=== PATIENT | female | born 1955 | race Caucasian/White ===

== ENCOUNTER 2020-11-12 11:21 | Outpatient (CLI) | payer MEDICARE, OTHER, SELFPAY ==
--- NOTE | 2020-11-12 11:30 | ECG_ITS ---
Measurements Intervals [place] Rate: 45 P: 50 SD: 163 QRS: 17 QRSD: 90 T: 15 QT: 406 QTc: 354 Interpretive Statements SINUS BRADYCARDIA POSSIBLE LEFT ATRIAL ENLARGEMENT BORDERLINE ST-T WAVE ABNORMALITY- ANTEROLAT/INF LEADS BASELINE ARTIFACT- I, II, AVR, AVL,A VF BORDERLINE ECG Electronically Signed On 11-12-2020 11:53:31 CDT by Jefry Garcia D.O.
== END 2020-11-12 11:22 | disposition home or self-care (01) ==
PROVIDERS: PCP Internal Medicine; Visit Provider Urology
DX: Z01.818 Encounter for other preprocedural examination (principal); N39.3 Stress incontinence (female) (male); I10 Essential (primary) hypertension; R00.1 Bradycardia, unspecified
CPT/HCPCS: 87086; 87088; 93005

== ENCOUNTER → 2020-11-13 04:07 | Outpatient (CLI) | payer MEDICARE, OTHER, SELFPAY ==
[2020-11-13 19:03] LABS: SARS-CoV-2 RNA PCR Negative
== END ==
PROVIDERS: PCP Internal Medicine; Visit Provider Urology
DX: Z01.812 Encounter for preprocedural laboratory examination (principal); Z20.822 Contact with and (suspected) exposure to COVID-19
CPT/HCPCS: C9803; U0003; U0005

== ENCOUNTER 2020-11-16 01:35 | Day surgery (SDC) | payer MEDICARE, OTHER, SELFPAY ==
[2020-11-05 15:29] VITALS: BMI 31.0
--- NOTE | 2020-11-10 11:19 | PM.IMHP ---
H&P: HPI History of Present Illness Date/Time: 11/10/20 11:19 a 65-year-old woman with stress urinary incontinence. She presents today for surgical management. Chief Complaint: stress incontinence Review of Systems Review of Systems: All systems reviewed & are unremarkable except as noted in HPI and below PMFSH Family History Family History (Updated 11/10/20 @ 11:20 by Xavi Bennett MD) Father Carcinoma of colon Other Breast cancer Diabetes mellitus Social History Social History (System 10/01/20 @ 16:28 by Finesse Ayers) Smoking status: Never smoker Alcohol intake: current Drinks per week: 3 Spiritual care concerns: No Meds Home Medications and Allergies Home Medications Medication Instructions Recorded Confirmed Type biotin 1,000 mcg PO DAILY 11/05/20 11/05/20 History duloxetine 60 mg PO QAM 11/05/20 11/05/20 History levothyroxine 150 mcg PO DAILY 11/05/20 11/05/20 History mwvpudpu-ooi-zfuq-FA-lutein 1 tablet PO DAILY 11/05/20 11/05/20 History [Centrum Silver Women] nebivolol [Bystolic] 5 mg PO HS 11/05/20 11/05/20 History Allergies Allergy/AdvReac Type Severity Reaction Status Date / Time moxifloxacin Allergy Intermediate Rash Unverified 11/05/20 15:35 levofloxacin Allergy Unknown Rash Verified 11/05/20 15:06 Exam Const: General: cooperative and healthy appearing HENMT: Head: normal to inspection Neck: Neck: normal visual inspection Chest: Chest palpation & inspection: normal inspection of the chest Resp: Effort & Inspection: normal respiratory effort and able to speak in complete sentences GI: Inspection: normal to inspection Skin: General skin exam: normal color Neuro: General: oriented to person and patient oriented x3 Assessment and Plan Assessment and plan (1) DUTCH (stress urinary incontinence, female): Code(s): N39.3 - Stress incontinence (female) (male) Status: Acute Assessment and Plan: urethral sling
[2020-11-16 09:00] VITALS: BP 134/71; PULSE 80; RESP 16; TEMP 36.8; O2SAT 95
[2020-11-16] MEDS: LACTATED RINGERS 1,000 ML 30 ML IV CONT (09:05)
--- NOTE | 2020-11-16 09:16 | WPDANESEPPF ---
Anes - Initial Pre Proc Eval Procedure: Operation Date: 11/16/20 10:30 Proposed Procedures p Urethral Sling - Xavi Bennett MD Date/Time: 11/16/20 09:16 Surgeon: Xavi Bennett MD Pre Op Diagnosis: stress incontinence Patient Data Age: 65 Gender: F Height: 5 ft 3 in Weight: 79.4 kg Allergies Allergy/AdvReac Type Severity Reaction Status Date / Time moxifloxacin Allergy Intermediate Rash Unverified 11/16/20 09:08 levofloxacin Allergy Unknown Rash Verified 11/16/20 09:08 Home Medications Medication Instructions Recorded Confirmed Type biotin 1,000 mcg PO DAILY 11/05/20 11/05/20 History duloxetine 60 mg PO QAM 11/05/20 11/16/20 History levothyroxine 150 mcg PO DAILY 11/05/20 11/16/20 History luqzcjkk-dto-ybbq-FA-lutein 1 tablet PO DAILY 11/05/20 11/05/20 History [Centrum Silver Women] nebivolol [Bystolic] 5 mg PO HS 11/05/20 11/16/20 History Patient hx anesthesia problems: none Family hx anesthesia problems: none PMFSH Family History Family History Father Carcinoma of colon Other Breast cancer Diabetes mellitus Social History Social History Smoking status: Never smoker Alcohol intake: current Drinks per week: 3 Living arrangements: with family Spiritual care concerns: No Anes - Eval Final PreProcedure Day of Procedure 11/16/20 09:16 Patient weight: obese Heart: regular rate and rhythm Lungs: clear to auscultation Airway: Mallampati scale class II Neurological: alert and oriented Last oral intake: >/= 8 hours ASA classification: II Emergent: no Anesthetic plan: proceed Anesthesia type and monitoring: general GIVS and standard monitoring Informed Consent: The patient's anesthetic plan and its attendant risks and benefits were discussed with the patient/family/POA. Questions were solicited and answers provided to the satisfaction of the patient/family/POA.
--- NOTE | 2020-11-16 10:20 | WPDHPUPDATE1 ---
History and Physical Update Update Date/Time: 11/16/20 10:20 History and Physical has been reviewed, including an updated exam of the patient. There are NO changes in the patient's condition. Risks, benefits, and alternatives have been discussed and questions answered. Patient agrees to proceed with procedure.
[2020-11-16] MEDS: ceFAZolin 2 GM/D5W 50 ML 2 GM/50 ML BAG IVPB (10:28)
[2020-11-16] MEDS: BUPIVACAINE/EPINEPHRINE 0.25% 50 ML VIAL 30 ML INFILTRATE (10:49)
--- NOTE | 2020-11-16 10:59 | PM.PROC ---
Procedure Note - Detailed Date of procedure: 11/16/20 Pre-op diagnosis: stress incontinence Stress urinary incontinence Post-op diagnosis: same Procedure performed: Transobturator Mid-urethral sling Cystoscopy Description of procedure: This is a patient with confirmed stress urinary incontinence. She desires correction. She understands the risks of bleeding, infection, damage to the urinary tract, lack of cure of stress incontinence, recurrence of stress incontinence, postoperative voiding dysfunction including incontinence and retention, need for ancillary procedures to loosen remove the sling, postoperative voiding dysfunction including retention and overactive bladder, hip and leg pain, dyspareunia, mesh related complications including exposure and extrusion. She agrees to proceed. She understands it will not help overactive bladder symptoms if present. She was correctly identified and informed consent obtained. She is brought to the operating room. She was given appropriate anesthesia. She was placed in the dorsal lithotomy position. All pressure points were padded. She was given appropriate perioperative antibiotics and a time-out performed. A Ramirez catheter is placed. I marked out the thigh incisions anesthetize the skin and made those incisions. I anesthetized the anterior vaginal wall over the mid urethra. I made a 1 cm incision. I dissected out laterally taking great care not to injure the urethra or the vaginal wall. Passed the helical trocars 1st on the left and then on the right from the thigh incision towards the vaginal incision. Sling was connected to the trocars and brought out through the thigh incision. I tensioned the sling appropriately. I cut and removed the plastic sheaths. I closed the incision with 2 0 Vicryl. I then performed cystoscopy. There was no surgical artifact or abnormalities inside the bladder. The urethra was normal without surgical artifact. I cut the excess sling material. I closed the incisions with glue. She was awakened and transferred to the PACU in stable condition. Implants: Mid urethral sling Surgeon: Xavi Bennett MD Drains: No Packing: No Pathology: none sent Complications: No immediate complications Condition: stable Disposition: PACU
[2020-11-16 11:04] VITALS: BP 136/57; PULSE 53; RESP 14; O2SAT 100
[2020-11-16 11:24] VITALS: BP 126/65; PULSE 53; RESP 14; O2SAT 98
[2020-11-16 11:50] VITALS: BP 140/56; PULSE 60; RESP 16
[2020-11-16 12:20] VITALS: BP 124/75; PULSE 60; RESP 16
== END 2020-11-16 12:25 | disposition home or self-care (01) ==
PROVIDERS: PCP Internal Medicine; Visit Provider Urology
PROC: (CPT 57288; principal; 2020-11-16 10:30)
DX: N39.3 Stress incontinence (female) (male) (principal); E03.9 Hypothyroidism, unspecified; E66.9 Obesity, unspecified; Z68.35 Body mass index [BMI] 35.0-35.9, adult
CPT/HCPCS: 57288; A9270; C1771; J0690; J2250; J2704; J3010; J7030; J7120

== ENCOUNTER 2021-08-08 00:10 | Day surgery (SDC) | payer MEDICARE, OTHER, SELFPAY ==
--- NOTE | 2021-07-30 15:18 | PM.IMHP ---
H&P: HPI History of Present Illness Date/Time: 07/30/21 15:18 Chief Complaint: Right toe deformity Narrative: 66-year-old woman with right foot 2nd 3rd and 4th hammertoe deformity. Pain with shoe wear and activity. Unrelieved with conservative measures. Presents for operative treatment. Review of Systems Constitutional: Constitutional: Denies fever(s) Eyes: Eyes: Denies blurry vision ENT: Reports Normal hearing present Cardiovascular: Cardiovascular: Denies chest pain and Denies dyspnea Respiratory: Respiratory: Denies dyspnea and Denies wheezing Gastrointestinal: Gastrointestinal: Denies abdominal pain Genitourinary: Genitourinary: Denies urinary urgency Musculoskeletal: Musculoskeletal: Reports as per HPI and Denies numbness Integumentary/Breasts: Skin/Breast: Denies changing lesions and Denies sores Neurologic: Reports Normal hearing present, Denies behavioral changes, Denies confusion, Denies numbness and Denies convulsions Psychiatric: Psychiatric: Denies behavioral changes, Denies confusion and Denies hallucinations Endocrine: Endocrine: Denies heat intolerance Hematologic/Lymphatic: Hematologic/Lymphatic: Denies easy bleeding Allergic/Immunologic: Allergic/Immunologic: Denies wheezing PMFSH Past Medical History Medical History (Updated 07/30/21 @ 15:19 by Mike Wesley MD) Acquired hammertoe of right foot Arthritis Foot pain, right Skin cancer Vision loss Surgical History Surgical History History of vascular surgery Saphenous vein stripping [address] Quinonez Family History Family History Father Carcinoma of colon Other Arthritis Breast cancer Diabetes mellitus Hypertension Social History Social History Smoking status: Never smoker Alcohol intake: current Drinks per week: 3 Substance use: never Substance use type: does not use Gender identity (if verbalized by the patient): Female Spiritual care concerns: No Meds Home Medications and Allergies Home Medications Medication Instructions Recorded Confirmed Type Bystolic 5 mg PO HS 11/05/20 05/31/21 History Centrum Silver Women 1 tablet PO DAILY 11/05/20 05/31/21 History biotin 1,000 mcg PO DAILY 03/29/21 10/22/21 History duloxetine 60 mg PO QAM 11/05/20 05/31/21 History levothyroxine 150 mcg PO DAILY 11/05/20 05/31/21 History tramadol 50 mg PO Q6H PRN #20 tablet 11/16/20 05/31/21 Rx Allergies Allergy/AdvReac Type Severity Reaction Status Date / Time moxifloxacin Allergy Intermediate Rash Verified 05/31/21 13:51 cefixime [From Suprax] Allergy Unknown Rash Verified 05/31/21 13:51 levofloxacin Allergy Unknown Rash Verified 05/31/21 13:51 Exam Const: General: healthy appearing; No in distress or confusion Orientation/consciousness: oriented to person, oriented to place, oriented to time and No confusion HENMT: Head: normal to inspection, normocephalic and atraumatic Eyes: Conjunctivae: conjunctivae normal Sclera: sclerae normal Neck: Neck: supple and nontender Resp: Effort & Inspection: normal respiratory effort and no audible wheezes Cardio: Rhythm: regular rhythm Skin: General skin exam: no rashes or lesions noted Neuro: General: oriented to person, oriented to place, oriented to time and No confusion Extrem: Right upper extremity: normal to inspection Left upper extremity: normal to inspection Right lower extremity: ankle Details: normal to inspection, normal ROM ( dorsiflexion 5?, plantar flexion 45?, inversion 20?, eversion 10?) and other ( good stability all directions); no tenderness, no swelling and no ecchymosis and foot Details: abnormal to inspection Details: a deformity Location: of the great toe (Bone spur dorsal) and other (Dorsal prominence 1st metatarsal), tenderness Location: of the great toe Location
[2021-08-01 09:56] VITALS: BMI 30.1
--- NOTE | 2021-08-01 10:02 | PC.NURSE ---
Report to the Outpatient Waiting Room, entrance under the green pavilion located off [facility], at time __0600 on date _08/08/21 . OR Time: __729 . - You and your visitor will be asked a series of questions to screen for COVID 19 for your protection. - A mask is required within the hospital. - Only one visitor is allowed at this time. Patient visitors will be guided where to wait when not with patient. Preoperative COVID Testing Requirements: No COVID Test needed if: (proof is required; if not received patient will have Rapid Test prior to entry) - Patient has received COVID Vaccine at least 14 days prior to procedure date or - Patient has positive COVID test result within last 90 days of surgery date. COVID Test needed if above criteria is not met If not COVID vaccinated a COVID test must be conducted within 72 hours of surgery and patient is asked to isolate self from time of testing until procedure. You will go to the [employer] [facility] for your COVID testing. The [employer] [facility] site is located at the corner of [address] [facility]. You will only be called if COVID results are positive and your surgeon may reschedule your elective surgery date. Patients may have clear liquids (water, carbonated beverages, clear teas, apple juice) until 3 hours prior to surgery with a maximum of 20 ounces. - No food from midnight until time of surgery - Infants may have breast milk until 4 hours before surgery, infant formula 6 hours prior to surgery. - Children will be allowed to drink immediately following surgery. If applicable, please bring a bottle or sippy cup to assist with drinking. Juice, water, soda, and popsicles are readily available. For infants on formula, please bring formula the day of surgery. Pacifiers are allowed. Take the following medications with a SIP of water the morning of surgery: ___DULOXETINE,LEVOTHYROXINE Medications to discontinue per physician ____ALL VITAMINS AND SUPPLEMENTS 3 DAYS PRE OP Date to take last dose08/04/21 Please no make-up, nail guyanese, hairspray, perfume, deodorant, or body powder the day of surgery. No jewelry (including any body piercings) or valuables the day of surgery, leave them at home. Please take a shower or bath the night before, or the morning of, surgery with an antibacterial soap. Wear comfortable, loose fitting clothing. Children are encouraged to wear pajamas. - Jewelry must be removed prior to entering the operating room. Rings and piercings that are not removed may be cut off. - The hospital will not accept responsibility for valuables. - Please leave all valuables, including medications, at home the day of surgery. If you are going home after surgery, a licensed commercial driver's license driver must drive you home. - NO public transportation without another adult. - We recommend that an adult stay with you for 24 hours following discharge. - We also recommend that you do not drive, make important decision, drink alcoholic beverages, or take any drugs that were not prescribed by your health care provider for at least 24 hours after your discharge time. For Pediatric surgeries, we recommend two adults accompany the child home (only one inside the building at this time). Follow any additional instructions given to you from your surgeon. Telephone instructions given to ___PATIENT and asked if any additional questions and then verbalized understanding. Patient advised to call surgeon office or pre surgery nurse liaison [phone] if any additional questions.
[2021-08-08] VITALS (8 sets, daily range): BP systolic 114–140; BP diastolic 71–89; PULSE 46–61; RESP 12–14; TEMP 36.7–36.9; O2SAT 98–100
--- NOTE | ~2021-08-08 | XR_ITS ---
EXAMINATION: XR surgery orthopedic DATE: 08/08/2021 08:15 INDICATION: Right hammertoe correction TECHNIQUE: 4 fluoroscopic images of the right forefoot were obtained during procedure performed by Dr Fredo Wesley. Radiologist was not present for the imaging or procedure. The amount of fluoroscopy time u sed during this procedure was 0.2 minutes. Total DAP was 0.973 mGycm^2 COMPARISON: None. FINDINGS: Images demonstrate postoperative change of a right second proximal interphalangeal joint arthrodesis which is fixed with a fusion device placed over an axially directed percutaneous K wire which extends from the tuft of the distal phalanx to the base of the proximal phalanx. There is also been a K wire placed across the third toe from the tuft to the base of the proximal phalanx. Alignment post fixati on is in near-anatomic. No fracture. Mild osteoarthritis at the first metatarsophalangeal joint. IMPRESSION: 1. Fluoroscopy utilized during orthopedic procedures and the second and third toes as detailed above including an internally fixed second proximal interphalangeal joint arthrodesis. See procedure note f or further detail. Reviewed, dictated and finalized at location A. OR LANDSCAPE ARCHITECT IMPRESSION: 1. Fluoroscopy utilized during orthopedic procedures and the second and third t oes as detailed above including an internally fixed second proximal interphalan geal joint arthrodesis. See procedure note for further detail.
--- NOTE | 2021-08-08 06:09 | WPDHPUPDATE1 ---
History and Physical Update Update Date/Time: 08/08/21 06:09 History and Physical has been reviewed, including an updated exam of the patient. There are NO changes in the patient's condition. Risks, benefits, and alternatives have been discussed and questions answered. Patient agrees to proceed with procedure.
--- NOTE | 2021-08-08 06:43 | P.PNAN_ITS ---
Anes - Initial Pre Proc Eval Procedure: Operation Date: 08/08/21 07:30 Proposed Procedures p Right Second, Third and Fourth Hammer Toe Correction - Mike Wesley MD Date/Time: 08/08/21 06:43 Surgeon: Mike Wesley MD Pre Op Diagnosis: right 2nd,3rd,4th hammer toe Patient Data Age: 66 Gender: F Height: 1.6 m Weight: 77.15 kg Allergies Allergy/AdvReac Type Severity Reaction Status Date / Time moxifloxacin Allergy Intermediate Rash Verified 08/08/21 06:21 cefixime [From Suprax] Allergy Unknown Rash Verified 08/08/21 06:21 levofloxacin Allergy Unknown Rash Verified 08/08/21 06:21 Home Medications Medication Instructions Recorded Confirmed Type Centrum Silver Women 1 tablet PO DAILY 11/05/20 08/01/21 History biotin 1,000 mcg PO DAILY 11/05/20 08/01/21 History duloxetine 60 mg PO QAM 11/05/20 08/01/21 History levothyroxine 150 mcg PO DAILY 11/05/20 08/08/21 History nebivolol [Bystolic] 5 mg PO HS 11/05/20 08/01/21 History aspirin [Adult Low Dose Aspirin] 81 mg PO HS 08/01/21 08/01/21 History Patient hx anesthesia problems: none Family hx anesthesia problems: none Results Review: All pre-operative results and documents have been reviewed as part of the pre-operative evaluation. [facility] Past Medical History Medical History Acquired hammertoe of right foot Arthritis Foot pain, right Skin cancer Vision loss Surgical History Surgical History (Updated 08/08/21 @ 06:43 by Jose Ortiz MD) H/O: hysterectomy History of vascular surgery Saphenous vein stripping [address] Quinonez Family History Family History Father Carcinoma of colon Other Arthritis Breast cancer Diabetes mellitus Hypertension Social History Social History Smoking status: Never smoker Alcohol intake: current Drinks per week: 3 Substance use: never Substance use type: does not use Living arrangements: with family Gender identity (if verbalized by the patient): Female Spiritual care concerns: No Anes - Eval Final PreProcedure Day of Procedure 08/08/21 06:43 Patient weight: obese Heart: regular rate and rhythm Lungs: clear to auscultation Airway: Mallampati scale class II Neurological: alert and oriented Last oral intake: >/= 8 hours ASA classification: II Emergent: no Anesthetic plan: proceed Anesthesia type and monitoring: general LMA and standard monitoring Results Review: All pre-operative results and documents have been reviewed as part of the pre-operative evaluation. Informed Consent: The patient's anesthetic plan and its attendant risks and benefits were discussed with the patient/family/POA. Questions were solicited and answers provided to the satisfaction of the patient/family/POA.
[2021-08-08] MEDS: ACETAMINOPHEN 500 MG TABLET 1000 MG PO (07:00)
[2021-08-08] MEDS: LACTATED RINGERS 1,000 ML 30 ML IV CONT ×2 (07:05→08:26)
[2021-08-08] MEDS: KETOROLAC 15 MG/ML VIAL (*BKC) IV PUSH (07:07)
[2021-08-08] MEDS: ceFAZolin 2 GM/D5W 50 ML 2 GM/50 ML BAG IVPB (07:22)
[2021-08-08] MEDS: BUPIVACAINE HCL 0.5% PF 30 ML VIAL INFILTRATE (07:43)
--- NOTE | 2021-08-08 08:32 | P.OP_ITS ---
Procedure Note - Detailed Date of Procedure 08/08/21 Pre-op Diagnosis right 2nd,3rd,4th hammer toe Post-op Diagnosis same Procedure Performed Right 2nd 3rd and 4th hammertoe correction. Second proximal interphalangeal joint arthrodesis. Third and 4th flexor tenotomies. Surgeon Mike Wesley MD Medical Device registered nurse first assistant Anesthesia general Indications 66-year-old woman with right foot 2nd 3rd and 4th hammertoe deformity causing ulceration on the dorsum of the toes. Failed conservative treatment with strapping and hammertoe pads, accommodative shoes. Presents for operative treatment having failed non operative treatment. Description of Procedure Patient identified in the preoperative holding. Informed consent given. Operative extremity marked. Patient received intravenous antibiotics. Patient brought to the operating room where underwent general anesthetic by anesthesia team. Positioned supine on operating room table. Time-out performed confirming the patient, site of the surgery and the plan. Right foot prepped draped usual sterile surgical fashion using a ChloraPrep skin solution. Foot ankle exsanguinated and the calf tourniquet inflated to 225 mmHg. Second toe addressed 1st. Fifteen blade knife used to make a longitudinal incision over the dorsum of the proximal interphalangeal joint. Collateral ligaments released after dorsal capsulotomy. The distal and of the proximal phalanx removed with a bone cutter. The articular surface of the middle phalanx removed with a rongeur. Sizing and reaming of the proximal and middle phalanx then performed. Implant positioned and reduction of the interphalangeal joint performed. K-wire position within the fixation device for added fixation, bent outside of the toe and cut. Image intensification confirmed alignment, reduction and placement of the internal fixation. Wound irrigated and the capsule closed with 3-0 Monocryl interrupted suture. Skin repaired with 4-0 nylon interrupted suture. Third toe then addressed. Fifteen blade knife used to perform a percutaneous tenotomy of the flexor tendon with the toe and extension. Good release noted. Toe was then provisionally pinned with a point is 054 in K-wire for added fixation. Image intensification confirmed placement. The pin was bent and cut outside of the distal aspect of the toe. Fourth toe then addressed. Fifteen blade knife used to perform percutaneous tenotomy the flexor tendon with a toe in extension. Good release noted. Irrigation of the 3rd and 4th toe incisions and closure with 4-0 nylon interrupted suture. Sterile dressing applied. The patient was then woken from anesthesia, extubated and taken to the recovery room in stable condition. All sponge, needle, instrument counts were correct at the end of the case. Implants Arthrex 14 mm hammertoe implant, 0.054 in K-wire x2 Estimated Blood Loss 1 Tourniquet Time 35 Drains No Packing No Pathology none sent Complications None Condition stable Disposition PACU
[2021-08-08] MEDS: oxyCODONE HCL (*CRX) 5 MG TAB IR PO (09:35)
--- NOTE | 2021-08-08 10:24 | SUR.OPER ---
DYNANITE PIP IMPLANT BENT 14MM WITH INSTRUMENTATION LOT [id number], EXP 2025-04-09 RIGHT FOOT 2ND TOE
== END 2021-08-08 10:40 | disposition home or self-care (01) ==
PROVIDERS: PCP Internal Medicine; Visit Provider Orthopaedic Surgery
PROC: (CPT 28285; principal; 2021-08-08 07:30)
DX: M20.41 Other hammer toe(s) (acquired), right foot (principal); E03.9 Hypothyroidism, unspecified; M19.90 Unspecified osteoarthritis, unspecified site; Z85.828 Personal history of other malignant neoplasm of skin; E66.9 Obesity, unspecified; Z68.35 Body mass index [BMI] 35.0-35.9, adult
CPT/HCPCS: 28285; 26860; 28010; A9270; J0690; J1100; J1885; J2250; J2405; J2704; J3010; J7120

== ENCOUNTER → 2021-12-26 12:11 | Outpatient (CLI) | payer MEDICARE, OTHER, SELFPAY ==
--- NOTE | ~2021-12-26 | MR_ITS ---
EXAMINATION: MR shoulder RT wo con DATE: 12/26/2021 13:09 INDICATION: Right shoulder pain and decreased range of motion TECHNIQUE: Magnetic resonance imaging (MRI) of the right shoulder was performed without intravenous c ontrast. Sequences included axial PD-weighted FS FSE, coronal oblique PD-weighted FS FSE, coronal obl ique T2-weighted FS FSE, sagittal PD-weighted FS FSE, and sagittal T1-weighted SE. COMPARISON: None. FINDINGS: Coracoacromial arch: The acromion undersurface is flat in morphology (type I) with mild anterolateral downsloping. The cor acoacromial ligament is normal. Mild to moderate acromioclavicular osteoarthritis with small inferior ly directed osteophytes. Rotator cuff: Moderate supraspinatus and mild infraspinatus and subscapularis tendinopathy without discrete tear. T he teres minor tendon is normal. Normal rotator cuff muscle bulk and signal. Biceps tendon, glenoid labrum and glenohumeral cartilage: Long head of the biceps tendon is normal. Advanced glenohumeral osteoarthritis with extensive full th ickness cartilage loss involving much of the humeral head and glenoid and remodeling of the articular surfaces. Prominent subarticular cystic changes are seen along the superomedial aspect of the eileen l head and along the posterior and superior rim of the glenoid. Moderate size marginal osteophytes al ramy the inferomedial aspect of the humeral head. Degenerative tearing of the majority of the glenoid labrum relatively sparing the portion of the posterior superior labrum. There are multiple peripheral labral cysts along the posterior glenoid. Fluid: Moderate-sized glenohumeral joint effusion with synovitis at the axillary and anterior recess of the joint space. 10 x 8 x 4 mm low signal intensity loose body at the deep subscapular recess. There is p roportional extension of a moderate amount fluid along the long head biceps tendon sheath. Small amou nt of fluid in the subacromial/subdeltoid bursa consistent with mild bursitis. Bones: No fracture or pathologic marrow replacing process. IMPRESSION: 1. Advanced right glenohumeral osteoarthritis with extensive degenerative tearing of the glenoid labr um and likely reactive moderate sized glenohumeral joint effusion. 2. Mild to moderate rotator cuff tendinopathy without discrete tear. 3. Mild to moderate acromioclavicular osteoarthritis. 4. Mild subacromial/subdeltoid bursitis. Reviewed, dictated and finalized at location A. IMPRESSION: 1. Advanced right glenohumeral osteoarthritis with extensive degenerative teari ng of the glenoid labrum and likely reactive moderate sized glenohumeral joint effusion. 2. Mild to moderate rotator cuff tendinopathy without discrete tear. 3. Mild to moderate acromioclavicular osteoarthritis. 4. Mild subacromial/subdeltoid bursitis.
--- NOTE | ~2021-12-26 | MR_ITS ---
EXAMINATION: MR cervical spine wo con DATE: 12/26/2021 12:51 INDICATION: Neck pain. TECHNIQUE: Magnetic resonance imaging (MRI) of the cervical spine was performed without intravenous c ontrast. Sequences included sagittal T2-weighted FSE, sagittal T2-weighted FS FSE, sagittal T1-weight ed FSE, axial MERGE, and axial T2-weighted FSE. COMPARISON: None FINDINGS: There is kyphosis of cervical spine. There is 2 mm anterolisthesis of C3 on C4 and C7 on T1 . Vertebral body heights are normal. There is mildly decreased disc height at C4-C5, severely decreas ed disc height at C5-C6, and moderately decreased disc height at C6-C7. The spinal cord signal intens ity is normal. The following disc levels are specifically discussed: C2-C3: The disc does not extend beyond the endplate margin. There is no uncovertebral joint osteoarth ritis. There is mild right and severe left facet joint osteoarthritis. There is mild left neural fora americo stenosis. There is no central canal stenosis. C3-C4: The disc does not extend beyond the endplate margin. There is moderate left uncovertebral join t osteoarthritis. There is severe bilateral facet joint osteoarthritis. There is mild right and moder ate left neural foraminal stenosis. There is no central canal stenosis. C4-C5: The disc does not extend beyond the endplate margin. There is severe right and moderate left u ncovertebral joint osteoarthritis. There is severe bilateral facet joint osteoarthritis. There is mil d bilateral neural foraminal stenosis. There is mild central canal stenosis. C5-C6: The disc is bulging. There is moderate right and severe left uncovertebral joint osteoarthriti s. There is severe right and moderate left facet joint osteoarthritis. There is mild bilateral neural foraminal stenosis. There is mild central canal stenosis with ventral indentation of the spinal cord . C6-C7: The disc is bulging. There is severe bilateral uncovertebral joint osteoarthritis. There is mi ld bilateral facet joint osteoarthritis. There is mild bilateral neural foraminal stenosis. There is mild central canal stenosis. C7-T1: The disc does not extend beyond the endplate margin. There is no uncovertebral joint osteoarth ritis. There is severe bilateral facet joint osteoarthritis. There is mild bilateral neural foraminal stenosis. There is no central canal stenosis. IMPRESSION: 1. Severe cervical spondylosis. Reviewed, dictated and finalized at location A.
== END ==
PROVIDERS: PCP Internal Medicine; Visit Provider Internal Medicine
DX: M47.813 Spondylosis without myelopathy or radiculopathy, cervicothoracic region (principal); M48.03 Spinal stenosis, cervicothoracic region; M19.011 Primary osteoarthritis, right shoulder; M75.51 Bursitis of right shoulder
CPT/HCPCS: 72141; 73221

== ENCOUNTER 2024-11-11 10:21 | Outpatient (CLI) | payer MEDICARE, OTHER, SELFPAY ==
--- NOTE | 2024-11-11 10:27 | ECG_ITS ---
Test Date: 2024-11-11 10:43:35 Measurements Intervals [place] Rate: 54 P: 0 OK: 157 QRS: 20 QRSD: 106 T: 29 QT: 418 QTc: 400 Interpretive Statements SINUS BRADYCARDIA BORDERLINE ST-T WAVE ABNORMALITY- ANT/INF LEADS BASELINE ARTIFACT- I, II, III, AVR, AVL, AVF BORDERLINE ECG No previous ECG available for comparison Electronically Signed On 11-11-2024 10:57:16 CDT by Jefry Garcia D.O.
--- OUTSIDE RECORDS SUMMARY | 2024-11-11 10:52 | XMS_ITS | Clinical Summary ---
Author Organization [facility] Address [address] [place] [address] Care Team Providers Care Senior Piping Designer Name Role Phone Sonia New PA-C Primary Care Provider [phone] Encounters Date Type Department Care Team Description 10/14/2024 12:17 PM CODING COMPLIANCE MANAGER - 10/14/2024 11:59 PM CODING COMPLIANCE MANAGER Hospital Encounter [facility] [address] [place] [address] Sonia New PA-C Discharge Disposition: Home or Self Care (Routine Discharge) 10/14/2024 Travel 09/20/2024 1:14 PM CODING COMPLIANCE MANAGER - 09/20/2024 11:59 PM CODING COMPLIANCE MANAGER Hospital Encounter [facility] [address] [place] [address] Sonia New PA-C Discharge Disposition: Home or Self Care (Routine Discharge) 09/20/2024 Travel from Last 3 Months Immunizations Name Administration Dates Next Due PFIZER COVID-19 (ORIGINAL FO RMULATION, PURPLE CAP) mRNA, LNP-S, PF, 30 MCG/0.3 ML DOSE 08/20/2020,07/30/2020 Family History Medical History Relation Comments Breast Cancer Maternal Grandmother Relation Status Comments Maternal Grandmother Social History Tobacco Use Types Packs/Day Years Used Date Smoking Tobacco: Never Assessed Comments Unknown Sex and Gender Information Value Date Recorded Sex Assigned at Not on file Legal Sex Female 5:52 PM CDT Gender Identity Not on file Sexual Orientation Not on file Plan of Treatment Health Maintenance Due Date Last Done Comments Colorectal Cancer Screening Colonoscopy (10 Years) 1955 Pneumococcal Vaccine: 65+ Years (1 of 2 - PCV) 1961 Hepatitis C 1973 DTaP, Tdap and Td Vaccines ( 1 - Tdap) 1974 Zoster Vaccines (1 of 2) 2005 RSV Immunization or 60+ Years (1 - Risk 60-74 years 1-dose series) 2015 Annual Medicare Wellness Visit 2020 COVID-19 Vaccine (3 - 2023-2 5 season) 2024 08/20/2020, 07/30/2020 Influenza Adult (#1) 2024 Mammogram Screening 01/06/2026 01/07/2024 Dexa Scan (General) Completed 01/07/2024 Meningococcal B Vaccine Aged Out No l onger eligible based on patient's age to complete this topic Meningococcal Vaccine Aged Out No héctor rodrigo eligible based on patient's age to complete this topic RSV Immunizations Under 20 Months Aged Out No longer eligible b ased on patient's age to complete this topic Procedures Procedure Name Priority Date/Time Associated Diagnosis Comments USE ECHOCARDIOGRAM W CON Routine 10/14/2024 1:30 PM CODING COMPLIANCE MANAGER Nonrheumatic mitral (valve) prolapse CT HEART SCREEN CALCIUM SCORE PROMO Routine 09/20/2024 1:33 PM CODING COMPLIANCE MANAGER Encounter for screening for cardiovascular disorders Essential (primary) hypertension BONE DENSITY/DEXA Routine 01/07/2024 12: 43 PM CDT Other primary ovarian failure MG SCREENING W TOOTIE CLAUDIA DIGI Routine 01/07/2024 12:31 PM CDT Encounter for screening mammogram for malignant neoplasm of breast from Last 3 Months or Most Recently Relevant to Health Maintenance Results * USE ECHOCARDIOGRAM W CON (10/14/2024 1:30 PM CODING COMPLIANCE MANAGER) Anatomical Region Laterality Modality NA Ultrasound 10/14/2024 12:2 2 PM CODING COMPLIANCE MANAGER Narrative 10/14/2024 4:49 PM CODING COMPLIANCE MANAGER SERA OUTREACH Pat.Name: Betina Lawton Pat.ID: [id number] .Date: 10/14/2024 Refer.MD: Gilbert, [facility] Imaging Exam Time: 12:22:00 PM Study Type:GILBERT Height: 63 in Weight: 195 lb BSA: 1.91 m2 Age: 12 1955,69Y Sex: F Sonogrphr: Cr Pat. Stat.:Outpatient Reason for Study:Nonrheumatic mitral (valve) prolapse Procedures: Study performed at [place], [place] and interpreted by [facility]. 2D, M-mode, Doppler, Color Flow, Myocardial contrast was used to enhance endocardial definition. ++++++++++++++++++++++++++++++++++++ SUMMARY: ++++++++++++++++++++++++++++++++++++ Left ventricle is normal in size and systolic function Estimated EF of 55-60% Diastolic dysfunction. Right ventricle is normal in size and systolic function Moderate aortic regurgitation Unable to estimate pulmonary pressures. ++++++++++++++++++++++++++++++++++++ FINDINGS: ++++++++++++++++++++++++++++++++++++ LV: The left ventricular size is normal. The left ventricular systolic function is normal. Estimated left ventricular ejection fraction is 55-60%. Left ventricular diastolic function is abnormal (grade 1 - impaired relaxation). WM: Wall motion appears normal in all segments. RV: The right ventricle size is normal. The right ventricular function is normal. LA: Left atrial size is normal. RA: The right atrial size is normal. REJI: No evidence of pericardial effusion. AO: Aorta is normal. SVn: Inferior vena cava is normal. AV: The aortic valve is trileaflet. No evidence of aortic valve stenosis. Moderate aortic regurgitation. MV: The mitral valve is structurally normal. There is trace mitral regurgitation. PV: The pulmonic valve is normal There is trace pulmonic regurgitation TV: The tricuspid valve appears structurally normal. There is trace tricuspid regurgitation. <Electronic Signature> 10/14/2024 04:49 PM Max Monsivais M.D. Procedure Note Max Monsivais MD - 10/14/2024 SERA HUNT Pat.Name: Betina Lawton Pat.ID: [id number] .Date: 10/14/2024 Refer.MD: Gilbert, [facility] Imaging Exam Time: 12:22:00 PM Study Type:OUTREACH Height: 63 in Weight: 195 lb BSA: 1.91 m2 Age: 12 1955,69Y Sex: F Sonogrphr: Cr Pat. Stat.:Outpatient Reason for Study:Nonrheumatic mitral (valve) prolapse Procedures: Study performed at [place], [place] and interpreted by [facility]. 2D, M-mode, Doppler, Color Flow, Myocardial contrast was used to enhance endocardial definition. ++++++++++++++++++++++++++++++++++++ SUMMARY: ++++++++++++++++++++++++++++++++++++ Left ventricle is normal in size and systolic function Estimated EF of 55-60% Diastolic dysfunction. Right ventricle is normal in size and systolic function Moderate aortic regurgitation Unable to estimate pulmonary pressures. ++++++++++++++++++++++++++++++++++++ FINDINGS: ++++++++++++++++++++++++++++++++++++ LV: The left ventricular size is normal. The left ventricular systolic function is normal. Estimated left ventricular ejection fraction is 55-60%. Left ventricular diastolic function is abnormal (grade 1 - impaired relaxation). WM: Wall motion appears normal in all segments. RV: The right ventricle size is normal. The right ventricular function is normal. LA: Left atrial size is normal. RA: The right atrial size is normal. REJI: No evidence of pericardial effusion. AO: Aorta is normal. SVn: Inferior vena cava is normal. AV: The aortic valve is trileaflet. No evidence of aortic valve stenosis. Moderate aortic regurgitation. MV: The mitral valve is structurally normal. There is trace mitral regurgitation. PV: The pulmonic valve is normal There is trace pulmonic regurgitation TV: The tricuspid valve appears structurally normal. There is trace tricuspid regurgitation. <Electronic Signature> 10/14/2024 04:49 PM Max Monsivais M.D. us Sonia New PA-C ECHO Final Resu lt * CT HEART SCREEN CALCIUM SCORE PROMO (09/20/2024 1:33 PM CODING COMPLIANCE MANAGER) Anatomical Region Laterality Modality Chest Computed Tomogra phy 09/20/2024 8:50 PM CODING COMPLIANCE MANAGER Impressions 09/20/2024 8:53 PM CODING COMPLIANCE MANAGER IMPRESSION: 1. Total Score: 0 no identifiable plaque. Very low probability of coronary artery disease. 2. Pulmonary hypertension 3. Two small pulmonary nodules less than 6 mm in size. Fleischner Society guidelines recommend optional follow-up noncontrast chest CT in 12 months for high risk individuals. No specific follow-up indicated for low risk individuals. Referred By: SONIA NEW Interpreted By: Tom Lee MD, 09/20/2024 8:50 PM Narrative 09/20/2024 8:53 PM CODING COMPLIANCE MANAGER [facility] [address] [place] [address] EXAMINATION: Multislice Helical CT Coronary Calcium Scoring EXAM DATE/TIME: 09/20/2024 1:16 PM REASON FOR EXAM: Screening Encounter for screening for cardiovascular disorders. Primary hypertension. COMPARISON: No prior chest CT TECHNIQUE: Multislice helical CT images of the proximal coronary arteries with a computer generated calcification score. A dose lowering technique was used for this procedure, which may include, but is not limited to, dose reduction technique, automated exposure control, iterative reconstruction, ALARA (As Low As Reasonably Achievable), or Image Gently techniques. Results: Left main: 0 LAD: 0 Circumflex: 0 Right coronary: 0 Total Score: 0 Comments: No pericardial effusion. No lymphadenopathy in the visualized mediastinum. The included portion of the aorta is normal in caliber throughout. Visualized central airways are patent. 3 mm nodule left lung image #3. 3 mm nodule lateral left lung image 22. No acute abnormalities in the visualized upper abdomen. Pulmonary artery hypertension. Calcium score guidelines: Total Score* Calcium Plaque [place] *Risk *Probability of significant CAD 0 No Plaque Very Low Very unlikely 1-10 Minimal Plaque Low Unlikely 11-100 Mild Plaque Moderate Low likelihood of significant stenosis <50% 101-400 Moderate Plaque Moderately High Moderate likelihood of significant stenosis (>50%) Over 400 Extensive Plaque High High likelihood of significant stenosis (>50%) The amount of coronary artery calcification correlates with the severity of coronary atherosclerosis and the probability of future significant event. Calcification is not site specific for stenosis and does not identify non-calcified atherosclerotic plaque, but rather indicates the extent of atherosclerosis in the coronary arteries overall. The score may be used as an indicator for risk factor modification or additional cardiac testing. Significant change in calcium score over time may be indicative of subsequent disease development or useful as a benchmark to assess preventative programs. Procedure Note Tom Lee MD - 09/20/2024 [facility] [address] [place] [address] EXAMINATION: Multislice Helical CT Coronary Calcium Scoring EXAM DATE/TIME: 09/20/2024 1:16 PM REASON FOR EXAM: Screening Encounter for screening for cardiovascular disorders. Primaryhypertension. COMPARISON: No prior chest CT TECHNIQUE: Multislice helical CT images of the proximal coronary arterieswith a computer generated calcification score. A dose lowering techniquewas used for this procedure, which may include, but is not limited to,dose reduction technique, automated exposure control, iterativereconstruction, ALARA (As Low As Reasonably Achievable), or Image Gentlytechniques. Results: Left main: 0 LAD: 0 Circumflex: 0 Right coronary: 0 Total Score: 0 Comments: No pericardial effusion. No lymphadenopathy in the visualizedmediastinum. The included portion of the aorta is normal in caliberthroughout. Visualized central airways are patent. 3 mm nodule left lungimage #3. 3 mm nodule lateral left lung image 22. No acute abnormalitiesin the visualized upper abdomen. Pulmonary artery hypertension. Calcium score guidelines: Total Score* Calcium Plaque [place] *Risk *Probability ofsignificant CAD 0 No Plaque Very LowVery unlikely 1-10 Minimal Plaque LowUnlikely 11-100 Mild Plaque ModerateLow likelihood of significant stenosis <50% 101-400 Moderate Plaque Moderately HighModerate likelihood of significant stenosis (>50%) Over 400 Extensive Plaque HighHigh likelihood of significant stenosis (>50%) The amount of coronary artery calcification correlates with the severityof coronary atherosclerosis and the probability of future significantevent. Calcification is not site specific for stenosis and does not identify non- calcifiedatherosclerotic plaque, but rather indicates the extent of atherosclerosisin the coronary arteries overall. The score may be used as an indicator for risk factor modification oradditional cardiac testing. Significant change in calcium score over timemay be indicative of subsequent disease development or useful as a benchmark to assess preventativeprograms. IMPRESSION: 1. Total Score: 0 no identifiable plaque. Very low probability ofcoronary artery disease. 2. Pulmonary hypertension 3. Two small pulmonary nodules less than 6 mm in size. [facility] guidelines recommend optional follow-up noncontrast chest CT in 12months for high risk individuals. No specific follow-up indicated for lowrisk individuals. Referred By: SONIA NEW Interpreted By: Tom Lee MD, 09/20/2024 8:50 PM us Sonia New PA-C CT Final Resu lt * BONE DENSITY/DEXA (01/07/2024 12:43 PM CDT) Anatomical Region Laterality Modality Bone Bone Density 01/07/2024 4:42 PM CDT Impressions 01/08/2024 1:38 PM CDT IMPRESSION:===== The patient bone mineral density is Normal according to the World Health Organization (WHO) criteria. Referred By: SONIA NEW Interpreted By: Jose Perez MD, 01/07/2024 4:42 PM Narrative 01/08/2024 1:38 PM CDT EXAMINATION: Bone Density Axial EXAM DATE/TIME: 01/07/2024 12:22 PM REASON FOR EXAM: Postmenopausal status COMPARISON: None FINDINGS: DEXA bone densitometry The bone mineral density (BMD) was determined by dual-energy x-ray absorptiometry, the results are as follows: AP Lumbar Spine L1 through L4 BMD Patient (GM/SQCM): 0.963 T-Score (Standard deviations from young adult peak bone density): -0.8 and a Z- Score of 1.2. Right mean femoral neck: BMD Patient (GM/SQCM): 0.802 T-Score (Standard deviations from young adult peak bone density): -0.4 and a Z- Score of 1.3. Total right hip: BMD Patient (GM/SQCM): 0.975 T-Score (Standard deviations from young adult peak bone density): 0.3 and a Z- Score of 1.7. 10 year fracture risk using FRAX, fracture risk assessment tool: Not reported as all T scores are at or above -1.0. ===== Procedure Note Jose Perez MD - 01/08/2024 EXAMINATION: Bone Density Axial EXAM DATE/TIME: 01/07/2024 12:22 PM REASON FOR EXAM: Postmenopausal status COMPARISON: None FINDINGS: DEXA bone densitometry The bone mineral density (BMD) was determined bydual-energy x-ray absorptiometry, the results are as follows: AP Lumbar Spine L1 through L4 BMD Patient (GM/SQCM): 0.963 T-Score (Standard deviations from young adult peak bonedensity): -0.8 and a Z- Score of 1.2. Right mean femoral neck: BMD Patient (GM/SQCM): 0.802 T-Score (Standard deviations from young adult peak bonedensity): -0.4 and a Z- Score of 1.3. Total right hip: BMD Patient (GM/SQCM): 0.975 T-Score (Standard deviations from young adult peak bonedensity): 0.3 and a Z- Score of 1.7. 10 year fracture risk using FRAX, fracture risk assessment tool: Not reported as all T scores are at or above -1.0. ===== IMPRESSION:===== The patient bone mineral density is Normal according to the World Health Organization (WHO) criteria. Referred By: SONIA NEW Interpreted By: Jose Perez MD, 01/07/2024 4:42 PM us Sonia SANTANA-Claritza DEXA Final Resu lt * MG SCREENING W TOOTIE GARY (01/07/2024 12:31 PM CDT) Anatomical Region Laterality Modality Breast Bilateral Mammography 01/07/2024 3:58 PM CDT Impressions 01/07/2024 3:58 PM CDT IMPRESSION: 1. Stable mammographic appearance with no new findings to suggest malignancy in either breast. Assessment: ACR BI-RADS 2 - BENIGN FINDING(S) Recommendation: 1:Routine Screening Bilateral Comments: Ordered By: SONIA NEW Interpreted By: Aureliano Alvarado MD, 01/07/2024 3:58 PM Narrative 01/07/2024 3:58 PM CDT Examination: Digital bilateral screening mammogram with 3-D tomosynthesis Exam Date/Time: 01/07/2024 12:21 PM Reason For Exam: Screening Comparison: Priors including December 2018, April 2016. Technique: Digital screening mammography of both breasts was performed in addition to 3-D Tomosynthesis technique. This study was read with the assistance of a computer-aided detection system. Tissue density: There are scattered areas of fibroglandular density. Findings: There is no focal asymmetry, dominant mass lesion, area of skin thickening, or cluster of suspicious appearing calcifications in either breast to suggest malignancy. us Sonia New PA-C MAMMO Final Resu lt from Last 3 Months or Most Recently Relevant to Health Maintenance Insurance [facility] MEDICARE Care Teams Senior Piping Designer Relationship Specialty Start Date End Date Sonia New PA-C [address] [place] [address] [address] [place] [address] PCP - General PHYSICIAN PARTS DEPARTMENT MANAGER 01/07/24
--- OUTSIDE RECORDS SUMMARY | 2024-11-11 10:52 | XMS_ITS | Clinical Summary ---
Author Organization [facility] at the [facility] Address [address] [place] [address] Care Team Providers Care Radiation Oncology Manager Name Role Phone Jus Colon MD Primary Care Provider [phone] Allergies Active Allergy Reactions Criticality Noted Date Comments Moxifloxacin Hives,Itching,Rash Medium 12/17/2009 Medications levothyroxine (Levo-T) 150 mcg tablet 05/29/[address] (CYMBALTA) 60 mg capsule Take by mouth daily 09/17/2020 Active zolpidem (AMBIEN) 10 mg tablet TAKE 1 TABLET BY MOUTH EVERY NIGHT AT BEDTIME NEEDED FOR SLEEP 10/28/2020 Active Active Problems Problem Noted Date Diagnosed Date Varicose veins of bilateral lower extremities wi th pain 10/11/2020 Assessment & Plan (11/18/2020 1:54 PM CDT): Patient has painful varicose veins right lower extremity at her disabling despite conservative measures have recommended endovenous laser ablation of the right great saphenous vein with phlebectomies. The procedure and all risks have been explained she understands and agrees to proceed Assessment & Plan (10/11/2020 9:55 AM SLITTER AND REWINDER): Patient has symptomatic painful bilateral varicose veins despite years of knee- high compression therapy exercise and leg elevation. Will evaluate further with venous duplex continue those conservative measures follow-up 2 weeks Immunizations Immunization Administration Dates Next Due Pfizer SARS-CoV-2 Monovalent Vaccination (12+ Yrs) PURPLE 08/20/2020,07/30/2020 Surgical History Surgery Date Site/Laterality Comments HYSTERECTOMY 08/10/1993 - 08/09/1994 Partial SKIN CANCER EXCISION Medical History Medical History Date Comments Mitral valve disorder Family History Medical History Relation Name Comments Alzheimer's disease Father Colon cancer Father Hypertension Father Heart Mother Relation Name Status Comments Father Mother Social History Tobacco Use Types Packs/Day Years Used Date Smoking Tobacco: Never Comments Unknown Sex and Gender Information Value Date Recorded Sex Assigned at Not on file Legal Sex Female 7:23 PM SLITTER AND REWINDER Gender Identity Female 10/04/2020 8:22 PM SLITTER AND REWINDER Sexual Orientation Not on file Obstetrics History Last Filed Vital Signs Vital Sign Reading Time Taken Comments Blood Pressure 125/78 01/29/2021 2:57 PM CDT Pulse 54 01/29/2021 2:57 PM CDT Temperature - - Respiratory Rate - - Oxygen Saturation - - Inhaled Oxygen Concentration - - Weight 79.4 kg (175 lb) 01/29/2021 2:57 PM CDT Height 162.6 cm (5' 4 ) 01/29/2021 2:57 PM CDT Body Mass Index 30.04 01/29/2021 2:57 PM CDT Plan of Treatment Not on file Insurance [place] [id number] MEDICARE [facility] MEDICARE [employer] [place] MEDICARE [employer] [place] [id number] Care Teams Radiation Oncology Manager Relationship Specialty Start Date End Date Jus Colon MD [facility] [place] [address] PCP - General Internal Medicine 10/09/20
--- OUTSIDE RECORDS SUMMARY | 2024-11-11 10:52 | XMS_ITS | Referral Summary ---
Author Organization [facility] at the Medical Office [facility] Address [address] [place] [address] Care Team Providers Care Liability Analyst Name Role Phone Jus Colon MD Primary Care Provider [phone] Allergies Active Allergy Reactions Criticality Noted Date [...] proceed Assessment & Plan (10/11/2020 9:55 AM HEALTH EDUCATION TEACHER): Patient has symptomatic painful bilateral varicose veins despite years of knee- high compression therapy exercise and leg elevation. Will evaluate further with venous duplex continue those conservative measures follow-up 2 weeks Immunizations Immunization Administration Dates Next Due Pfizer SARS-CoV-2 Monovalent Vaccination (12+ Yrs) PURPLE 08/20/2020,07/30/2020 Social History Tobacco Use Types Packs/Day Years Used Date Smoking Tobacco: Never Comments Unknown Sex and Gender Information Value Date Recorded Sex Assigned at Not on file Legal Sex Female 7:23 PM HEALTH EDUCATION TEACHER Gender Identity Female 10/04/2020 8:22 PM HEALTH EDUCATION TEACHER Sexual Orientation Not on file Last Filed Vital Signs Vital Sign Reading [...] Plan of Treatment Not on file Insurance MEDICARE [facility] [place] [id number] MEDICARE [employer] [place] MEDICARE [employer] [place] Care Teams Liability Analyst Relationship Specialty Start Date End Date Jus Colon MD [address] [place] [address] PCP - General Internal Medicine 10/09/20
== END 2024-11-11 10:22 | disposition home or self-care (01) ==
LOC: ANHSURGERY 10:25
PROVIDERS: PCP Physician Assistant Medical; Visit Provider Surgery
DX: Z01.818 Encounter for other preprocedural examination (principal); I10 Essential (primary) hypertension
CPT/HCPCS: 93005

== ENCOUNTER 2024-11-14 00:37 | Day surgery (SDC) | payer MEDICARE, OTHER, SELFPAY ==
--- NOTE | 2024-10-31 13:45 | PC.NURSE ---
Report to the Outpatient Waiting Room, entrance under the green pavilion located off [facility], at time __6AM on date _11/14/24 . Planned Procedure Time: ___7:30 AM .? Time changes happen often and if your time is changed the preop area will call you the afternoon before. - You and your visitor will be asked to self-screen and do not enter if you have any COVID symptoms. Please call surgeon if you need to reschedule. - A mask is optional within the hospital at this time. Patients may have clear liquids (water, carbonated beverages, clear teas, apple juice) until 3 hours prior to surgery ( 4:30 AM) with a maximum of 20 ounces. - No food from midnight until time of surgery and no smoking, or chewing tobacco (or any form of nicotine). No chewing gum, candy or mints. Take only the following medications with a SIP of water on the morning of surgery: _DULOXETINE,LEVOTHYROXINE DO NOT STOP ANY OF YOUR OTHER PRESCRIPTION MEDICATIONS PRIOR TO SURGERY EXCEPT THE FOLLOWING Hold all vitamins and supplements for 3 days per anesthesiologist.LAST DOSE 11/10/24 Medications to discontinue per physician NONE Please no make-up, nail english, hairspray, perfume, deodorant, or body powder the day of surgery.? No jewelry (including any body piercings) or valuables the day of surgery, leave them at home.? Please take a shower or bath the night before, or the morning of, surgery with an antibacterial soap.? Wear comfortable, loose fitting clothing.? Children are encouraged to wear pajamas. - Jewelry must be removed prior to entering the operating room.? Rings and piercings that are not removed may be cut off. - The hospital will not accept responsibility for valuables.? - Please leave all valuables, including medications, at home the day of surgery. If you are going home after surgery, a licensed peg driver must drive you home.? - NO public transportation without another adult if you receive anesthesia. - We recommend that an adult stay with you for 24 hours following discharge. - We also recommend that you do not drive, make important decision, drink alcoholic beverages, or take any drugs that were not prescribed by your health care provider for at least 24 hours after your discharge time. For Pediatric surgeries, we recommend two adults accompany the child home. Follow any additional instructions given to you from your surgeon. Telephone instructions given to __PATIENT and asked if any additional questions and then verbalized understanding. Patient advised to call surgeon office or pre surgery nurse liaison [phone] if any additional questions.
[2024-10-31 13:54] VITALS: BMI 35.4
--- OUTSIDE RECORDS SUMMARY | 2024-11-14 00:40 | XMS_ITS | Clinical Summary ---
Author Organization [facility] at the [facility] Address [address] [place] [address] Care Team Providers Care Manager Delivery Name Role Phone Jus Colon MD Primary Care Provider [phone] Allergies Active Allergy Reactions Criticality Noted Date [...] proceed Assessment & Plan (10/11/2020 9:55 AM CRAB FISHER): Patient has symptomatic painful bilateral varicose veins [...] on file Legal Sex Female 7:23 PM CRAB FISHER Gender Identity Female 10/04/2020 8:22 PM CRAB FISHER Sexual Orientation Not on file Obstetrics History [...] Plan of Treatment Not on file Insurance [place] [id number] MEDICARE [facility] MEDICARE [employer] [place] MEDICARE [employer] [place] [id number] Care Teams Manager Delivery Relationship Specialty Start Date End Date Jus Colon MD [facility] [place] [address] PCP - General Internal Medicine 10/09/20
--- OUTSIDE RECORDS SUMMARY | 2024-11-14 00:40 | XMS_ITS | Referral Summary ---
Author Organization [facility] at the Medical Office Center Address [address] [place] [address] Care Team Providers Care Collar Tacker Name Role Phone Jus Colon MD Primary Care Provider [phone] Allergies Active Allergy Reactions Criticality Noted Date [...] proceed Assessment & Plan (10/11/2020 9:55 AM SOCIAL WORKER): Patient has symptomatic painful bilateral varicose veins [...] on file Legal Sex Female 7:23 PM SOCIAL WORKER Gender Identity Female 10/04/2020 8:22 PM SOCIAL WORKER Sexual Orientation Not on file Last Filed [...] of Treatment Not on file Insurance MEDICARE [facility] [place] [id number] MEDICARE [place] [employer] [place] MEDICARE [place] Care Teams Collar Tacker Relationship Specialty Start Date End Date Jus Colon MD [address] [place] [id number] PCP - General Internal Medicine 10/09/20
--- OUTSIDE RECORDS SUMMARY | 2024-11-14 00:40 | XMS_ITS | Clinical Summary ---
Author Organization [facility] Address [address] [place] [id number] Care Team Providers Care Technician [employer]icon[employer] Development Name Role Phone Sonia New PA-C Primary Care Provider [phone]- [phone] Encounters Date Type Department Care Team Description 10/14/2024 12:17 PM FOUNDRY WORKER APPRENTICE - 10/14/2024 11:59 PM FOUNDRY WORKER APPRENTICE Hospital Encounter [facility] [address] [place] [address] Sonia New PA-C Discharge Disposition: Home or Self Care (Routine Discharge) 10/14/2024 Travel 09/20/2024 1:14 PM FOUNDRY WORKER APPRENTICE - 09/20/2024 11:59 PM FOUNDRY WORKER APPRENTICE Hospital Encounter [facility] [address] [place] [address] Sonia New PA-C Discharge Disposition: Home or [...] - 2023-2 5 season) 2024 08/20/2020, 07/30/2020 Mammogram Screening 01/06/2026 01/07/2024 Dexa Scan (General) [...] ECHOCARDIOGRAM W CON Routine 10/14/2024 1:30 PM FOUNDRY WORKER APPRENTICE Nonrheumatic mitral (valve) prolapse CT HEART SCREEN CALCIUM SCORE PROMO Routine 09/20/2024 1:33 PM FOUNDRY WORKER APPRENTICE Encounter for screening for cardiovascular disorders Essential (primary) hypertension BONE DENSITY/DEXA Routine 01/07/2024 12: 43 PM CDT Other primary ovarian failure MG SCREENING W TOOTIE CLAUDIA DIGI Routine 01/07/2024 12:31 PM CDT Encounter for screening mammogram for malignant neoplasm of breast from Last 3 Months or Most Recently Relevant to Health Maintenance Results * USE ECHOCARDIOGRAM W CON (10/14/2024 1:30 PM FOUNDRY WORKER APPRENTICE) Anatomical Region Laterality Modality NA Ultrasound 10/14/2024 12:2 2 PM FOUNDRY WORKER APPRENTICE Narrative 10/14/2024 4:49 PM FOUNDRY WORKER APPRENTICE SERA OUTREACH Pat.Name: Betina Lawton Pat.ID: [id number] .Date: 10/14/2024 Refer.MD: Breana, [facility] Exam Time: 12:22:00 PM Study Type:OUTREACH Height: 63 in Weight: 195 lb BSA: 1.91 m2 Age: 12 1955,69Y Sex: F Sonogrphr: Javier Pat. Stat.:Outpatient Reason for Study:Nonrheumatic mitral (valve) prolapse Procedures: Study performed at [place], [place] and interpreted by [facility]. 2D, M-mode, Doppler, Color Flow, [...] regurgitation. <Electronic Signature> 10/14/2024 04:49 PM Max Monsivasi M.D. Procedure Note Max Monsivais MD - 10/14/2024 SERA HUNT Pat.Name: Betina Lawton.ID: [id number] .Date: 10/14/2024 Refer.MD: Breana, [facility] Exam Time: 12:22:00 PM Study Type:OUTREACH Height: 63 in Weight: 195 lb BSA: 1.91 m2 Age: 12 1955,69Y Sex: F Sonogrphr: Cr Pat. Stat.:Outpatient Reason for Study:Nonrheumatic mitral (valve) prolapse Procedures: Study performed at [place], [place] and interpreted by [facility]. 2D, M-mode, Doppler, Color Flow, [...] SCREEN CALCIUM SCORE PROMO (09/20/2024 1:33 PM FOUNDRY WORKER APPRENTICE) Anatomical Region Laterality Modality Chest Computed Tomogra phy 09/20/2024 8:50 PM FOUNDRY WORKER APPRENTICE Impressions 09/20/2024 8:53 PM FOUNDRY WORKER APPRENTICE IMPRESSION: 1. Total Score: 0 no identifiable [...] 09/20/2024 8:50 PM Narrative 09/20/2024 8:53 PM FOUNDRY WORKER APPRENTICE [facility] [address] [place] [address] EXAMINATION: Multislice Helical CT Coronary Calcium Scoring [...] Calcium score guidelines: Total Score* Calcium Plaque [place] *Risk *Probability of significant CAD 0 No [...] Procedure Note Tom Lee MD - 09/20/2024 [facility] [address] [place] [address] EXAMINATION: Multislice Helical CT Coronary Calcium Scoring [...] Calcium score guidelines: Total Score* Calcium Plaque [place] *Risk *Probability ofsignificant CAD 0 No Plaque [...] nodules less than 6 mm in size. [facility] recommend optional follow-up noncontrast chest CT [...] Most Recently Relevant to Health Maintenance Insurance [place] [id number] [facility] MEDICARE Care Teams Technician Semiconductor Development Relationship Specialty Start Date End Date Sonia New PA-C [address] [place] [address] [address] [place] [address] PCP - General PHYSICIAN SUPERVISOR [employer] 01/07/24
[2024-11-14 06:00] VITALS: BP 128/69; PULSE 52; RESP 18; TEMP 36.3; O2SAT 100
[2024-11-14] MEDS: LACTATED RINGERS 1,000 ML 30 ML IV CONT ×2 (06:18→09:56)
--- NOTE | 2024-11-14 06:58 | SUR.PREOP ---
SCDS DEFERRED , PT HAS MASSES ON BOTH LEGS BEING EXCISED
--- NOTE | 2024-11-14 07:14 | P.PNAN_ITS ---
Anes - Initial Pre Proc Eval Procedure: Operation Date: 11/14/24 07:30 Proposed Procedures p Excision Right Axillary Subcutaneous Mass, Excision Right Lower Extremity Skin Lesion Times Two, Excision Left Lower Extremity Skin Lesion - Armen Matos MD Date/Time: 11/14/24 07:14 Surgeon: Armen Matos MD Pre Op Diagnosis: Rt Axillary Lipoma, Rt Low Extrem Skin Lesion x2 Patient Data Age: 69 Gender: F Height: 1.6 m Weight: 91.4 kg Last Vital Signs Temp 97.3 F L 11/14/24 06:00 Pulse 52 L 11/14/24 06:00 Resp 18 11/14/24 06:00 BP 128/69 11/14/24 06:00 Pulse Ox 100 11/14/24 06:00 O2 Del Method Room Air 11/14/24 06:00 Allergies Allergy/AdvReac Type Severity Reaction Status Date / Time moxifloxacin Allergy Intermediate Rash Verified 10/31/24 13:40 levofloxacin Allergy Unknown Rash Verified 10/31/24 13:40 Home Medications ?Medication ?Instructions ?Recorded ?Confirmed ?Type levothyroxine 150 mcg tablet 150 mcg PO DAILY 11/05/20 11/14/24 History bwdzitse-trca-hqlj 8 mg-folic 400 1 tablet PO DAILY 11/05/20 11/14/24 History mcg-K 50 mcg-lutein 300 mcg tablet (Centrum Silver Women) duloxetine 60 mg capsule,delayed 60 mg PO QAM #90 caps 03/18/22 11/14/24 Rx release ascorbic acid (vitamin C) 1,000 mg 1 g PO DAILY 10/31/24 11/14/24 History tablet (C-1000) olmesartan 40 mg tablet (Benicar) 40 mg PO DAILY 10/31/24 11/14/24 History zinc 50 mg capsule 50 mg PO DAILY 10/31/24 11/14/24 History Patient hx anesthesia problems: none Family hx anesthesia problems: none Results Review: All pre-operative results and documents have been reviewed as part of the pre- operative evaluation. [facility] Past Medical History Medical History MVP (mitral valve prolapse) Anxiety and depression Encounter for postoperative care Raynauds syndrome Cervical spondylosis with radiculopathy Arthritis of shoulder region, right, degenerative Foot pain, right Arthritis Skin cancer Vision loss Acquired hammertoe of right foot Surgical History Surgical History History of wisdom tooth extraction History of tonsillectomy History of shoulder replacement right- 11/2022 H/O: hysterectomy History of vascular surgery Saphenous vein stripping [address] Quinonez Family History Family History Father Carcinoma of colon Other Arthritis Breast cancer Diabetes mellitus Hypertension Social History Social History (Updated 09/21/24 @ 13:13 by Lashell Lloyd MA) Social History: 09/09/23 declined SDOH Smoking status: Never smoker Alcohol intake: current Drinks per week: 3 Substance use: never Substance use type: does not use Do You Feel Safe in your Home?: Yes Lack of Transportation: No Lack of Food: Never True Current Housing: I Have Housing Concerned About Future Housing: No Difficulty Paying Gas/Electric Bills: No Difficulty Paying for Meds: No Currently Unemployed: No Education: Bachelor's Degree Difficulty w/ Childcare or Family Care: No Living arrangements: with family Occupation/Education: retired Gender identity (if verbalized by the patient): Female Spiritual care concerns: No Anes - Eval Final PreProcedure Day of Procedure 11/14/24 07:14 Patient weight: obese Heart: regular rate and rhythm Lungs: clear to auscultation Airway: Mallampati scale class II Neurological: alert and oriented Last oral intake: >/= 8 hours ASA classification: III Emergent: no Anesthetic plan: proceed Anesthesia type and monitoring: general LMA and standard monitoring Results Review: All pre-operative results and documents have been reviewed as part of the pre- operative evaluation. Informed Consent: The patient's anesthetic plan and its attendant risks and benefits were discussed with the patient/family/POA. Questions were solicited and answers provided to the satisfaction of the patient/family/POA.
--- NOTE | 2024-11-14 07:24 | PM.IMHP ---
H&P: HPI History of Present Illness Date/Time: 11/14/24 07:24 Chief Complaint: Right axillary SQ mass and bilateral leg skin lesions Narrative: Betina is a 69 y/o female who presents with a right axillary mass that she noticed about 4 years ago. She feels it has increased in size recently. She denies pain. She states it gets in the way when she shaves. She denies overlying skin changes, redness, and drainage. She also notes a few spots on her legs that she would like looked at. She has 2 spots on her right leg and 1 on the left. She has a history of squamous skin cancer in the past. Review of Systems Review of Systems: The remainder of the review of systems to include constitutional, HEENT, cardiovascular, respiratory, GI, , integumentary, musculoskeletal, endocrine, immunologic, hematologic, psychiatric, and neurologic are all negative except for which is mentioned above in the HPI. [facility] Past Medical History Medical History MVP (mitral valve prolapse) Anxiety and depression Encounter for postoperative care Raynauds syndrome Cervical spondylosis with radiculopathy Arthritis of shoulder region, right, degenerative Foot pain, right Arthritis Skin cancer Vision loss Acquired hammertoe of right foot Surgical History Surgical History History of wisdom tooth extraction History of tonsillectomy History of shoulder replacement right- 11/2022 H/O: hysterectomy History of vascular surgery Saphenous vein stripping [address] Quinonez Family History Family History Father Carcinoma of colon Other Arthritis Breast cancer Diabetes mellitus Hypertension Social History Social History Social History: 09/09/23 declined [facility] Smoking status: Never smoker Alcohol intake: current Drinks per week: 3 Substance use: never Substance use type: does not use Do You Feel Safe in your Home?: Yes Lack of Transportation: No Lack of Food: Never True Current Housing: I Have Housing Concerned About Future Housing: No Difficulty Paying Gas/Electric Bills: No Difficulty Paying for Meds: No Currently Unemployed: No Education: Bachelor's Degree Difficulty w/ Childcare or Family Care: No Living arrangements: with family Occupation/Education: retired Gender identity (if verbalized by the patient): Female Spiritual care concerns: No Meds Home Medications and Allergies Home Medications ?Medication ?Instructions ?Recorded ?Confirmed ?Type levothyroxine 150 mcg tablet 150 mcg PO DAILY 11/05/20 11/14/24 History wjixpyyw-wewk-pckw 8 mg-folic 400 1 tablet PO DAILY 11/05/20 11/14/24 History mcg-K 50 mcg-lutein 300 mcg tablet (Centrum Silver Women) duloxetine 60 mg capsule,delayed 60 mg PO QAM #90 caps 03/18/22 11/14/24 Rx release ascorbic acid (vitamin C) 1,000 mg 1 g PO DAILY 10/31/24 11/14/24 History tablet (C-1000) olmesartan 40 mg tablet (Benicar) 40 mg PO DAILY 10/31/24 11/14/24 History zinc 50 mg capsule 50 mg PO DAILY 10/31/24 11/14/24 History Allergies Allergy/AdvReac Type Severity Reaction Status Date / Time moxifloxacin Allergy Intermediate Rash Verified 10/31/24 13:40 levofloxacin Allergy Unknown Rash Verified 10/31/24 13:40 Vital Signs Vital Signs - 24 hr 11/14/24 06:00 Temperature 36.3 C L Pulse Rate 52 L Respiratory Rate 18 Blood Pressure 128/69 Pulse Oximetry 100 Oxygen Delivery Room Air Exam Const: General: comfortable and no acute distress HENMT: Ears: TM's normal bilaterally Face/Nose/Sinus: Normal nares present Mouth: Yes moist mucous membranes Eyes: General: appearance normal, both eyes and all related structures Sclera: sclerae normal Pupils: Equal, round and reactive pupils present EOM: EOMs intact bilaterally Neck: Neck: supple and no JVD Resp: Effort & Inspection: normal respiratory effort Auscultation: clear to auscultation bilaterally Cardio: Rate: regular rate Rhythm: regular rhythm GI: GI Palp: Yes Soft to palpation, No Firmness to palpation present (GI), No Tenderness to palpation present (GI), No Guarding due to palpation present (GI) and No Hernia present Skin: Lesions: lesion noted (Right axilla mass measures 12 x 9cm. Soft, well circumscribed, non fixed.) Other: Left anterior lower leg measures 1.1 x 0.9cm. Right medial calf measures 1.3 x 0.8cm. Right lower inner thigh measures 1.6cm x 1cm. Erythematous, non-ulcerated. Slightly inflamed. Neuro: General: gait normal Speech: normal speech Motor exam (neuro): 5/5 motor strength present throughout Sensory Exam: normal sensation Extrem: General: normal to inspection Psych: Mental Status: mental status grossly normal Affect: normal affect Assessment and Plan Assessment and plan (1) Lipoma of right axilla: Code(s): D17.21 - Benign lipomatous neoplasm of skin and subcutaneous tissue of right arm Status: Acute Assessment and Plan: I have reviewed Phyllis New's office note prior to the office visit. Patient has a large lipomatous mass in the right axilla. She would like to have it removed. It is most likely a large lipoma. Will proceed with excision of right axillary subcutaneous mass and excision of RLE skin lesion x 2, and LLE mass x1 to be done under general anesthesia as an outpatient. Postoperatively would except to have a drain in place. Procedure risks, benefits, indications, and expected outcomes were discussed with the patient in detail. All questions were answered. Patient would like to proceed. Follow-up 7-10 days postoperatively. (2) Skin lesion of right lower extremity: Code(s): L98.9 - Disorder of the skin and subcutaneous tissue, unspecified Status: Acute Assessment and Plan: as above (3) Skin lesion of left lower extremity: Code(s): L98.9 - Disorder of the skin and subcutaneous tissue, unspecified Status: Acute Assessment and Plan: as above
--- NOTE | 2024-11-14 07:30 | WPDHPUPDATE1 ---
History and Physical Update Update Date/Time: 11/14/24 07:30 History and Physical has been reviewed, including an updated exam of the patient. There are NO changes in the patient's condition. Risks, benefits, and alternatives have been discussed and questions answered. Patient agrees to proceed with procedure.
[2024-11-14] MEDS: ceFAZolin 2 GM/D5W 50 ML 2 GM/50 ML BAG IVPB (07:33)
[2024-11-14] MEDS: LIDO 1%/EPINEPHRINE 1:100,000 50 ML VIAL 30 ML INFILTRATE (08:28)
--- NOTE | 2024-11-14 09:06 | SUR.OPER ---
Doctor broke scrub and repositioned the patient mid case for the RIGHT AXILLAR MASS EXCISION.
[2024-11-14] MEDS: KETOROLAC 15 MG/ML VIAL (*BKC) IV PUSH (09:17)
[2024-11-14 09:35] VITALS: BP 134/74; PULSE 90; RESP 14; TEMP 36.4; O2SAT 100
--- NOTE | 2024-11-14 09:47 | P.OPB_ITS ---
Procedure Note - Brief Procedure Note - Brief Date of procedure: 11/14/24 Rt Axillary Lipoma, Rt Low Extrem Skin Lesion x2 Post-op diagnosis: Same Procedure performed: Excision right axillary subcutaneous mass Excision right lower inner thigh skin lesion with 6cm intermediate layered wound closure Excision right posterior calf skin lesion with 4cm intermediate layered wound closure Excision left anterior tibial skin lesion with 4cm intermediate layered wound closure Surgeon: Armen Matos MD Specialty Development Consultant: Bridgett Pimentel RN FA Anesthesia: GLMA Implants: None Estimated blood loss (mL): 20 Drains: No Packing: No Pathology: Yes (Skin lesion sent separately to pathology right axillary subcutaneous mass sent to pathology) Complications: No immediate complications Condition: Stable Disposition: PACU
[2024-11-14 09:50] VITALS: BP 124/67; PULSE 66; RESP 14; O2SAT 98
[2024-11-14 10:05] VITALS: BP 112/69; PULSE 67; RESP 11; O2SAT 94
[2024-11-14 10:10] VITALS: BP 127/62; PULSE 59; RESP 16
[2024-11-14 10:35] VITALS: BP 109/71; PULSE 55; RESP 16
--- NOTE | 2024-11-18 08:07 | P.OP_ITS ---
Procedure Note - Detailed Date of Procedure 11/14/24 Pre-op Diagnosis Right axillary subcutaneous mass, left lower extremity skin lesion x1, right lower extremity skin lesion x2 Post-op Diagnosis Same Procedure Performed Excision right axillary subcutaneous mass Excision of right thigh skin lesion with 6cm intermediate layered wound closure Excision of right calf skin lesion with 4cm intermediate layered wound closure Excision of left anterior tibial lower extremity skin lesion with 4cm intermediate layered wound closure Surgeon Armen Matos MD Prn Occupational Therapist Noelle Thorne [facility] Anesthesia General Indications Patient is a 69-year-old female presented with complaints of a large subcutaneous mass which had been growing in her right axilla. She also complained of having some irritated suspicious skin lesions in bilateral extremities which may represent some skin cancers. She presents now for excision of all the suspicious skin lesions on her bilateral extremities as well as excision and removal of the large right axillary subcutaneous mass. Findings Patient had a large right axillary subcutaneous mass grossly consistent with a lipoma which measured 12.5x9x2.5cm. She also had a right lower inner thigh skin lesion measuring 2x1.5cm. She had a right posterior calf skin lesion measuring 1x1cm. Lastly she had a left anterior tibial skin lesion measuring 1x0.5cm. Description of Procedure After informed consent was obtained patient brought to the operating room she was placed supine position and general endotracheal anesthesia was administered. The bilateral lower extremities were then prepped circumferentially in the usual sterile fashion. A time-out was then performed correctly identifying the patient as well as procedure to be performed. She was given perioperative IV antibiotics. I 1st approached excising off the 2 skin lesions on the right medial thigh and the right calf. The skin lesion of the distal medial right thigh region was excised 1st. 1% lidocaine mixed with 0.5% Marcaine with some epinephrine was injected around the skin lesion for local anesthetic effect. I then made a transverse elliptical incision full thickness with a scalpel obtaining approximately 3mm margin around the edges of the skin lesion. Completely excised out the lesion and the ellipse of skin all the way down to the subcutaneous tissues with electrocautery. The skin lesion measured 2x1.5cm. It was sent to pathology for examination. Next I then injected the same local anesthetic mixture around the right posterior calf lesion. Again a transverse elliptical incision was made full thickness with a scalpel down to subcutaneous fat. Obtained a 3mm margin circumferentially around the skin lesion. Electrocautery was used to excise off the ellipse of skin all the way down to subcutaneous fat. The skin lesion was sent to pathology separately. Lastly the skin lesion on the left anterior tibial region was then anesthetized utilizing the same local anesthetic mixture. On this lesion a longitudinal elliptical incision was made obtaining 3mm margins around the edges of the skin lesion. The incision was carried full thickness down to subcutaneous fat. Electrocautery was used to excise off the ellipse of skin and subcutaneous fat. This lesion was sent to pathology separately as well. All 3 incisions were then irrigated sterile saline solution and and hemostasis was achieved electrocautery. All 3 skin lesions were then closed in a similar fashion utilizing an an intermediate layered wound closure. Interrupted 2-0 Vicryl sutures placed in deeper portions of the subcutaneous tissues followed by interrupted 3-0 Vicryl sutures placed in a deep dermal layer. A running subcuticular 4-0 Monocryl suture was then used to close the skin edges. The right thigh skin lesion closure was 6cm in length, the right posterior calf incision skin lesion was closed with a 4cm closure, and the left anterior tibial skin lesion closure was 4cm. All 3 incisions were then cleaned and then covered with skin glue. We then took down the sterile drapes and then re-prepped the right axillary, right lateral chest, and right upper arm region sterilely after placing the patient in left lateral decubitus position. Great care was taken make sure all the pressure points were appropriately padded. More local anesthetic mixture was injected over the intended incision in the posterior lateral right axillary region. A transverse incision was then made the scalpel down through the dermis of skin electrocautery. I then dissected down through the subcutaneous tissues until I encountered the capsule to the lipomatous mass. There was a good well- defined capsule surrounding the lipoma and with a combination of electrocautery and blunt finger dissection I was able to deliver the lipoma out from the subcutaneous tissues above the skin level. It tapered down to a portion that entered into the right axillary region below the deltopectoral fascia. I opened the deltopectoral fashion to excise out this last portion of the lipoma. Once the lipoma was completely excised out with electrocautery it measured 12.5x9x2.5cm. It was sent separately to pathology. I then irrigated out the incision sterile saline solution hemostasis was excellent. The not feel I would need to leave a drain in the wound as I felt I could close all the subcutaneous space. Interrupted 2-0 Vicryl sutures were then used to close the space and deeper subcutaneous tissues. More superficial layer of interrupted 3- 0 Vicryl sutures were then used to close the superficial subcutaneous tissues. The skin edges were then approximated utilizing a running subcuticular 4 Monocryl suture. The incision was then cleaned the skin glue was applied. The patient tolerated the procedure well no complications. All sponges, needles, and instrument counts were correct at the end procedure. EBL was _25__cc. The patient was awakened and taken to recovery in stable and satisfactory condition. Implants None Estimated Blood Loss 25 Drains No Packing No Pathology Yes (All 3 skin lesion sent to pathology separately. Right axillary lipoma sent to pathology separately.) Complications No immediate complications Condition Stable Disposition PACU [facility] Billing Surgery - Charge Forward: Surgery Billing
== END 2024-11-14 10:54 | disposition home or self-care (01) ==
PROVIDERS: PCP Physician Assistant Medical; Visit Provider Surgery
PROC: (CPT 24071; principal; 2024-11-14 07:30)
DX: D17.21 Benign lipomatous neoplasm of skin and subcutaneous tissue of right arm (principal); C44.712 Basal cell carcinoma of skin of right lower limb, including hip; C44.719 Basal cell carcinoma of skin of left lower limb, including hip; F41.8 Other specified anxiety disorders; I65.8 Occlusion and stenosis of other precerebral arteries; M47.12 Other spondylosis with myelopathy, cervical region; M19.011 Primary osteoarthritis, right shoulder; E66.9 Obesity, unspecified; Z68.35 Body mass index [BMI] 35.0-35.9, adult; Z98.890 Other specified postprocedural states; Z85.828 Personal history of other malignant neoplasm of skin; Z86.79 Personal history of other diseases of the circulatory system; Z80.0 Family history of malignant neoplasm of digestive organs; Z80.3 Family history of malignant neoplasm of breast
CPT/HCPCS: 24071; 11600; 11603; 11601; 12035; 88304; 88305; A9270; J0690; J1100; J1885; J2004; J2405; J2704; J3010; J7120

== ENCOUNTER 2024-12-05 00:41 | Day surgery (SDC) | payer MEDICARE, OTHER, SELFPAY ==
[2024-11-25 08:58] VITALS: BMI 35.4
--- OUTSIDE RECORDS SUMMARY | 2024-12-05 00:44 | XMS_ITS | Clinical Summary ---
Author Organization [facility] Address [address] [place] [id number] Care Team Providers Care Switchboard Inspector Name Role Phone Sonia New PA-C Primary Care Provider [phone] Encounters Date Type Department Care Team Description 10/14/2024 12:17 PM CHAIRMAN AND CHIEF EXECUTIVE OFFICER - 10/14/2024 11:59 PM CHAIRMAN AND CHIEF EXECUTIVE OFFICER Hospital Encounter [facility] [address] [place] [address] Sonia New PA-C Discharge Disposition: Home or Self Care (Routine Discharge) 10/14/2024 Travel 09/20/2024 1:14 PM CHAIRMAN AND CHIEF EXECUTIVE OFFICER - 09/20/2024 11:59 PM CHAIRMAN AND CHIEF EXECUTIVE OFFICER Hospital Encounter [facility] [address] [place] [address] Sonia New PA-C Discharge Disposition: Home or Self Care (Routine Discharge) 09/20/2024 Travel from Last 3 Months Immunizations Immunization Administration Dates Next Due PFIZER COVID-19 (ORIGINAL [...] Colorectal Cancer Screening Colonoscopy (10 Years) 1955 Hepatitis C 1973 DTaP, Tdap and Td Vaccines ( 1 - Tdap) 1974 Pneumococcal Vaccine: 50+ Years (1 of 2 - PCV) 1974 Zoster Vaccines (1 of 2) 2005 [...] ECHOCARDIOGRAM W CON Routine 10/14/2024 1:30 PM CHAIRMAN AND CHIEF EXECUTIVE OFFICER Nonrheumatic mitral (valve) prolapse CT HEART SCREEN CALCIUM SCORE PROMO Routine 09/20/2024 1:33 PM CHAIRMAN AND CHIEF EXECUTIVE OFFICER Encounter for screening for cardiovascular disorders Essential (primary) hypertension BONE DENSITY/DEXA Routine 01/07/2024 12: 43 PM CDT Other primary ovarian failure MG SCREENING W TOOTIE CLAUDIA DIGI Routine 01/07/2024 12:31 PM CDT Encounter for screening mammogram for malignant neoplasm of breast from Last 3 Months or Most Recently Relevant to Health Maintenance Results * USE ECHOCARDIOGRAM W CON (10/14/2024 1:30 PM CHAIRMAN AND CHIEF EXECUTIVE OFFICER) Anatomical Region Laterality Modality NA Ultrasound 10/14/2024 12:2 2 PM CHAIRMAN AND CHIEF EXECUTIVE OFFICER Narrative 10/14/2024 4:49 PM CHAIRMAN AND CHIEF EXECUTIVE OFFICER SERA OUTREACH Pat.Name: Betina Lawton Pat.ID: [id number] St.Date: 10/14/2024 Refer.MD: Gilbert, [facility] Imaging Exam Time: 12:22:00 PM Study Type:GILBERT Height: 63 in Weight: 195 lb BSA: 1.91 m2 Age: 12 1955,69Y Sex: F Sonogrphr: Cr Pat. Stat.:Outpatient Reason for Study:Nonrheumatic mitral (valve) prolapse Procedures: Study performed at [place], [place] and interpreted by [facility]. 2D, M-mode, Doppler, Color Flow, [...] RA: The right atrial size is normal. ERJI: No evidence of pericardial effusion. AO: Aorta [...] - 10/14/2024 SERA HUNT Pat.Name: Betina Lawton.ID: [id number] .Date: 10/14/2024 Refer.MD: Gilbert, [facility] Imaging Exam Time: 12:22:00 PM Study Type:OUTREACH Height: 63 in Weight: 195 lb BSA: 1.91 m2 Age: 12 1955,69Y Sex: F Sonogrphr: Cr Pat. Stat.:Outpatient Reason for Study:Nonrheumatic mitral (valve) prolapse Procedures: Study performed at [place], [place] and interpreted by [facility]. 2D, M-mode, Doppler, Color Flow, [...] SCREEN CALCIUM SCORE PROMO (09/20/2024 1:33 PM CHAIRMAN AND CHIEF EXECUTIVE OFFICER) Anatomical Region Laterality Modality Chest Computed Tomogra phy 09/20/2024 8:50 PM CHAIRMAN AND CHIEF EXECUTIVE OFFICER Impressions 09/20/2024 8:53 PM CHAIRMAN AND CHIEF EXECUTIVE OFFICER IMPRESSION: 1. Total Score: 0 no identifiable [...] 09/20/2024 8:50 PM Narrative 09/20/2024 8:53 PM CHAIRMAN AND CHIEF EXECUTIVE OFFICER [facility] [address] [place] [address] EXAMINATION: Multislice Helical CT Coronary Calcium Scoring [...] Calcium score guidelines: Total Score* Calcium Plaque [place] *Risk *Probability of significant CAD 0 No [...] Procedure Note Tom Lee MD - 09/20/2024 [id number] [place] [address] EXAMINATION: Multislice Helical CT Coronary Calcium Scoring [...] Calcium score guidelines: Total Score* Calcium Plaque [place] *Risk *Probability ofsignificant CAD 0 No Plaque [...] nodules less than 6 mm in size. [facility] guidelines recommend optional follow-up noncontrast [...] By: Jose Perez MD, 01/07/2024 4:42 PM Sonia New PA-C DEXA Final Resu lt * MG SCREENING [...] Most Recently Relevant to Health Maintenance Insurance MEDICARE Care Teams Switchboard Inspector Relationship Specialty Start Date End Date Sonia New PA-C [address] [place] [address] [address] [place] [address] PCP - General PHYSICIAN HOME STAGING SPECIALIST 01/07/24
[2024-12-05 11:44] VITALS: BP 133/73; PULSE 57; RESP 16; TEMP 36.3; O2SAT 97; BMI 35.6
[2024-12-05] MEDS: LACTATED RINGERS 1,000 ML 150 ML IV CONT (11:52)
--- NOTE | 2024-12-05 12:14 | P.PNAN_ITS ---
Anes - Initial Pre Proc Eval Procedure: Operation Date: 12/05/24 13:30 Proposed Procedures p Screening Colonoscopy - Jeremias Carrasquillo MD Date/Time: 12/05/24 12:14 Surgeon: Jeremias Carrasquillo MD Pre Op Diagnosis: Screening Patient Data Age: 69 Gender: F Height: 1.6 m Weight: 91.4 kg Last Vital Signs Temp 97.4 F L 12/05/24 11:44 Pulse 57 L 12/05/24 11:44 Resp 16 12/05/24 11:44 BP 133/73 12/05/24 11:44 Pulse Ox 97 12/05/24 11:44 O2 Del Method Room Air 12/05/24 11:44 Allergies Allergy/AdvReac Type Severity Reaction Status Date / Time moxifloxacin Allergy Intermediate Rash Verified 12/05/24 11:43 levofloxacin Allergy Unknown Rash Verified 12/05/24 11:43 Home Medications ?Medication ?Instructions ?Recorded ?Confirmed ?Type levothyroxine 150 mcg tablet 150 mcg PO DAILY 11/05/20 12/05/24 History gkesurar-nlwb-ewih 8 mg-folic 400 1 tablet PO DAILY 11/05/20 12/05/24 History mcg-K 50 mcg-lutein 300 mcg tablet (Centrum Silver Women) duloxetine 60 mg capsule,delayed 60 mg PO QAM #90 caps 03/18/22 12/05/24 Rx release ascorbic acid (vitamin C) 1,000 mg 1 g PO DAILY 10/31/24 12/05/24 History tablet (C-1000) olmesartan 40 mg tablet (Benicar) 40 mg PO DAILY 10/31/24 12/05/24 History zinc 50 mg capsule 50 mg PO DAILY 10/31/24 12/05/24 History Patient hx anesthesia problems: none Family hx anesthesia problems: none Results Review: All pre-operative results and documents have been reviewed as part of the pre- operative evaluation. [facility] Past Medical History Medical History Basal cell carcinoma Lipoma of axilla MVP (mitral valve prolapse) Anxiety and depression Encounter for postoperative care Raynauds syndrome Cervical spondylosis with radiculopathy Arthritis of shoulder region, right, degenerative Foot pain, right Arthritis Skin cancer Vision loss Acquired hammertoe of right foot Surgical History Surgical History H/O excision of mass 11/14/24 Excision right axillary subcutaneous mass Excision of right thigh skin lesion with 6cm intermediate layered wound subhash sure Excision of right calf skin lesion with 4cm intermediate layered wound closure Excision of left anterior tibial lower extremity skin lesion with 4cm intermediate layered wound closure, Dr. Matos History of wisdom tooth extraction History of tonsillectomy History of shoulder replacement right- 11/2022 H/O: hysterectomy History of vascular surgery Saphenous vein stripping [address] Quinonez Family History Family History Father Carcinoma of colon Other Arthritis Breast cancer Diabetes mellitus Hypertension Social History Social History Social History: 09/09/23 declined SDOH Smoking status: Never smoker Alcohol intake: current Drinks per week: 2 Alcohol use details: Beer Substance use: never Substance use type: does not use Concerned About Future Housing: Decline to Answer Difficulty Paying Gas/Electric Bills: Decline to Answer Difficulty Paying for Meds: Decline to Answer Currently Unemployed: Decline to Answer Education: Bachelor's Degree Difficulty w/ Childcare or Family Care: No Living arrangements: with family Occupation/Education: retired Gender identity (if verbalized by the patient): Female Spiritual care concerns: No Anes - Eval Final PreProcedure Day of Procedure 12/05/24 12:14 Patient weight: obese Lungs: normal air movement Airway: Mallampati scale class II Neurological: alert and oriented Last oral intake: >/= 8 hours ASA classification: II Emergent: no Anesthetic plan: proceed Anesthesia type and monitoring: general GIVS and standard monitoring Results Review: All pre-operative results and documents have been reviewed as part of the pre- operative evaluation. Htn, hypothyroidism, raynauds. Informed Consent: The patient's anesthetic plan and its attendant risks and benefits were discussed with the patient/family/POA. Questions were solicited and answers provided to the satisfaction of the patient/family/POA.
--- NOTE | 2024-12-05 12:55 | P.HP_ITS ---
History of Present Illness History of Present Illness Consent: Risks, benefits, and alternatives have been discussed and questions answered. Patient agrees to proceed with procedure. Chief complaint: Screening Narrative: Betina Lawton is a 69 year old female here for colonoscopy, last one 2015, father had colon cancer Review of Systems Review of Systems: All systems reviewed & are unremarkable except as noted in HPI and below PMFSH Past Medical History Medical History (Updated 12/05/24 @ 12:55 by Jeremias Carrasquillo MD) Family history of colon cancer in father Basal cell carcinoma Lipoma of axilla MVP (mitral valve prolapse) Anxiety and depression Encounter for postoperative care Raynauds syndrome Cervical spondylosis with radiculopathy Arthritis of shoulder region, right, degenerative Foot pain, right Arthritis Skin cancer Vision loss Acquired hammertoe of right foot Surgical History Surgical History H/O excision of mass 11/14/24 Excision right axillary subcutaneous mass Excision of right thigh skin lesion with 6cm intermediate layered wound closure Excision of right calf skin lesion with 4cm intermediate layered wound closure Excision of left anterior tibial lower extremity skin lesion with 4cm intermediate layered wound closure, Dr. Matos History of wisdom tooth extraction History of tonsillectomy History of shoulder replacement right- 11/2022 H/O: hysterectomy History of vascular surgery Saphenous vein stripping [address] Quinonez Family History Family History Father Carcinoma of colon Other Arthritis Breast cancer Diabetes mellitus Hypertension Social History Social History Social History: 09/09/23 declined [facility] Smoking status: Never smoker Alcohol intake: current Drinks per week: 2 Alcohol use details: Beer Substance use: never Substance use type: does not use Concerned About Future Housing: Decline to Answer Difficulty Paying Gas/Electric Bills: Decline to Answer Difficulty Paying for Meds: Decline to Answer Currently Unemployed: Decline to Answer Education: Bachelor's Degree Difficulty w/ Childcare or Family Care: No Living arrangements: with family Occupation/Education: retired Gender identity (if verbalized by the patient): Female Spiritual care concerns: No Meds Home Medications and Allergies Home Medications ?Medication ?Instructions ?Recorded ?Confirmed ?Type levothyroxine 150 mcg tablet 150 mcg PO DAILY 11/05/20 12/05/24 History fvguqkwa-fddv-hrhp 8 mg-folic 400 1 tablet PO DAILY 11/05/20 12/05/24 History mcg-K 50 mcg-lutein 300 mcg tablet (Centrum Silver Women) duloxetine 60 mg capsule,delayed 60 mg PO QAM #90 caps 03/18/22 12/05/24 Rx release ascorbic acid (vitamin C) 1,000 mg 1 g PO DAILY 10/31/24 12/05/24 History tablet (C-1000) olmesartan 40 mg tablet (Benicar) 40 mg PO DAILY 10/31/24 12/05/24 History zinc 50 mg capsule 50 mg PO DAILY 10/31/24 12/05/24 History Allergies Allergy/AdvReac Type Severity Reaction Status Date / Time moxifloxacin Allergy Intermediate Rash Verified 12/05/24 11:43 levofloxacin Allergy Unknown Rash Verified 12/05/24 11:43 Vital Signs Vital Signs - 24 hr 12/05/24 11:44 Temperature 97.4 F L Pulse Rate 57 L Respiratory Rate 16 Blood Pressure 133/73 Pulse Oximetry 97 Oxygen Delivery Room Air Exam Const: General: comfortable and no acute distress HENMT: Face/Nose/Sinus: Normal nares present Eyes: General: appearance normal, both eyes and all related structures Neck: Neck: no JVD Resp: Auscultation: clear to auscultation bilaterally Cardio: Rate: regular rate Rhythm: regular rhythm GI: Inspection: non-distended GI Palp: Yes Soft to palpation Skin: General skin exam: normal color Neuro: General: gait normal Speech: normal speech Extrem: General: normal to inspection Psych: Mental Status: mental status grossly normal Assessment and Plan Assessment and plan (1) Family history of colon cancer in father: Code(s): Z80.0 - Family history of malignant neoplasm of digestive organs Status: Acute Assessment and Plan: colonoscopy
[2024-12-05 13:35] VITALS: BP 139/82; PULSE 54; RESP 20; O2SAT 97
[2024-12-05 13:45] VITALS: BP 135/72; PULSE 48; RESP 20; O2SAT 100
[2024-12-05 13:55] VITALS: BP 154/73; PULSE 46; RESP 22; O2SAT 100
== END 2024-12-05 14:08 | disposition home or self-care (01) ==
PROVIDERS: PCP Physician Assistant Medical; Referring Provider Physician Assistant Medical; Visit Provider Internal Medicine Gastroenterology
PROC: 0DJD8ZZ Inspection of Lower Intestinal Tract, Via Natural or Artificial Opening Endoscopic (ICD-10-PCS; CPT 45378; principal; 2024-12-05 13:30)
DX: Z12.11 Encounter for screening for malignant neoplasm of colon (principal); D12.0 Benign neoplasm of cecum; D12.2 Benign neoplasm of ascending colon; D12.3 Benign neoplasm of transverse colon; D12.4 Benign neoplasm of descending colon; K63.89 Other specified diseases of intestine; F41.8 Other specified anxiety disorders; Z80.0 Family history of malignant neoplasm of digestive organs; I73.00 Raynaud's syndrome without gangrene; Z96.611 Presence of right artificial shoulder joint
CPT/HCPCS: 45385; 88305; J2003; J2704; J7120